=== PATIENT | female | born 1995 | race Two or more races ===

== ENCOUNTER 2018-03-17 13:26 | Emergency (ER) | payer SELFPAY ==
[~2018-03-17] VITALS: Ht 170.2 cm; Wt 102.5 kg
[2018-03-17] MEDS ORDERED: cefTRIAXone SOD 1,000 MG VL IM ONE (15:45)
[2018-03-17] MEDS ORDERED: ACETAMINOPHEN 325 MG TAB PO ONE (17:00)
[2018-03-17] MEDS ORDERED: PROMETHAZINE W/CODEINE 5 ML ORAL SYRUP PO ONE (19:15)
[2018-03-17 19:40] VITALS: BP 117/78
== END 2018-03-17 21:16 | disposition home or self-care (01) ==
LOC: ER 13:30
DX: O99.512 Diseases of the respiratory system complicating pregnancy, second trimester (principal); J40 Bronchitis, not specified as acute or chronic; O26.892 Other specified pregnancy related conditions, second trimester; R79.89 Other specified abnormal findings of blood chemistry; R00.0 Tachycardia, unspecified; Z3A.24 24 weeks gestation of pregnancy
CPT/HCPCS: 36415; 85379; 93005; 93970; 96372; 99284; J0696

== ENCOUNTER 2020-03-19 19:32 | Emergency (ER) | payer MEDICAID, OTHER ==
[~2020-03-19] VITALS: Ht 170.2 cm; Wt 104.3 kg
[2020-03-19 21:56] VITALS: BP 126/80
[2020-03-19] MEDS ORDERED: KETOROLAC TROMETH 60MG/2ML VIAL IM ONE (22:00)
[2020-03-19 23:05] LABS: Urine Bacteria NONE SEEN /hpf (None Seen); Urine Blood TRACE /uL (Negative); Urine Mucus FEW (None Seen); Urine WBC 6 /hpf (0 - 5)
== END 2020-03-19 22:45 | disposition home or self-care (01) ==
LOC: ER 19:32
DX: M54.16 Radiculopathy, lumbar region (principal); S39.012A Strain of muscle, fascia and tendon of lower back, initial encounter; X58.XXXA Exposure to other specified factors, initial encounter; Y93.89 Activity, other specified; Y92.89 Other specified places as the place of occurrence of the external cause; Y99.8 Other external cause status
CPT/HCPCS: 72131; 81001; 96372; 99284; J1885

== ENCOUNTER 2023-11-26 19:26 | Inpatient (IN) | payer SELFPAY ==
[~2023-11-26] VITALS: Ht 170.2 cm; Wt 107.7 kg
[~2023-11-26 19:26] MED LIST: HYDR-4902 PO; LEVO500T91 PO
[2023-11-26 20:24] LABS: Urine Bacteria None Seen /hpf (None Seen)
[2023-11-26 20:32] LABS: Basophils # (auto) 0 10 ^3/uL (0-0.2); Basophils % (auto) 0.4 % (0.0-2.0); Eosinophils # (auto) 0.1 10 ^3/uL (0-0.8); Eosinophils % (auto) 1.2 % (0.0-7.0); Hematocrit 33.4 % (36.0-46.0); Hemoglobin 11.4 g/dL (12.2-16.2); Lymphocytes # (auto) 2.4 10 ^3/uL (0.4-5.4); Lymphocytes % (auto) 30.4 % (10.0-50.0); Mean Corpuscular Hemoglobin 28.6 pg (28.0-32.0); Mean Corpuscular Hgb Conc. 34.2 g/dL (32.0-36.0); Mean Corpuscular Volume 83.6 fL (80.0-100.0); Monocytes # (auto) 0.6 10 ^3/uL (0-1.3); Monocytes % (auto) 7.6 % (0.0-12.0); Neutrophils # (auto) 4.7 10 ^3/uL (1.6-8.6); Neutrophils % (auto) 60.4 % (37.0-80.0); Platelet Count (auto) 351 10^3/uL (140-450); Red Blood Cells 3.99 10^6/uL (4.0-5.20); Red Cell Distribution Width 15.6 % (11.8-14.3); White Blood Cell 7.8 10^3/uL (4.4-10.8)
[2023-11-26 20:38] LABS: Urine Blood Negative /uL (Negative); Urine Budding Yeast OCCASIONAL /hpf (None Seen); Urine Clarity Clear (Clear); Urine Color Light-Yellow (Yellow); Urine Mucus FEW (None Seen); Urine Protein, UAD Negative (Negative); Urine Specific Gravity 1.027 (1.001-1.035); Urine Urobilinogen Normal (Negative); Urine WBC 2 /hpf (0 - 5); Urine pH 6.5 (5.0-9.0)
[2023-11-26 20:50] LABS: Alanine Aminotransferase 17 U/L (7-40); Alkaline Phosphatase 86 U/L (46-116); Calcium 9.9 mg/dL (8.7-10.4); Carbon Dioxide 27 mmol/L (20-30); Chloride 110 mmol/L (98-107)
[2023-11-26 20:51] LABS: Albumin 4.7 g/dL (3.2-4.8); Anion Gap 5 (5-15); Aspartate Aminotransferase < 8 U/L (13-40); BUN/Creatinine Ratio 15.2 (10.0-20.0); Bilirubin, Total 0.2 mg/dL (0.2-1.0); Blood Urea Nitrogen 12 mg/dL (9-23); Glucose 115 mg/dL (74-106); Lipase 42 U/L (12-53); Potassium 3.9 mmol/L (3.5-5.1); Sodium 142 mmol/L (136-145); Total Protein 7.5 g/dL (5.7-8.2)
[2023-11-26] MEDS: ONDANSETRON HCL 4 MG/2 ML VIAL IV ONE (21:00)
[2023-11-26] MEDS: PANTOPRAZOLE 40 MG/10 ML VIAL INJ IV ONE (21:00)
[2023-11-26] MEDS: SODIUM CHLORIDE 0.9% 1,000 ML IVB ONE (21:00)
[2023-11-26] MEDS: MORPHINE SULFATE 4 MG/ML SYR/VIAL IV ONE (21:00)
[2023-11-26] MEDS: SODIUM CHLORIDE 0.9% 1,000 ML IV SCH (23:00)
[2023-11-26 23:18] LABS: INR 0.95 (0.9-1.15); Partial Thromboplastin Time 25.7 SEC (24.5-34.5); Prothrombin Time 10.1 sec (9.3-11.8)
[2023-11-27] MEDS: ONDANSETRON HCL 4 MG/2 ML VIAL IV PRN (04:59)
[2023-11-27] MEDS: MORPHINE SULFATE INJ 2 MG/ml SYRG IV PRN (05:00)
[2023-11-27 06:23] LABS: Basophils # (auto) 0 10 ^3/uL (0-0.2); Basophils % (auto) 0.3 % (0.0-2.0); Eosinophils # (auto) 0 10 ^3/uL (0-0.8); Eosinophils % (auto) 0.1 % (0.0-7.0); Hematocrit 35.1 % (36.0-46.0); Hemoglobin 11.6 g/dL (12.2-16.2); Lymphocytes # (auto) 1.7 10 ^3/uL (0.4-5.4); Lymphocytes % (auto) 11.1 % (10.0-50.0); Mean Corpuscular Hemoglobin 27.9 pg (28.0-32.0); Mean Corpuscular Hgb Conc. 33.2 g/dL (32.0-36.0); Mean Corpuscular Volume 84.2 fL (80.0-100.0); Monocytes # (auto) 0.9 10 ^3/uL (0-1.3); Monocytes % (auto) 6.1 % (0.0-12.0); Neutrophils # (auto) 12.7 10 ^3/uL (1.6-8.6); Neutrophils % (auto) 82.4 % (37.0-80.0); Platelet Count (auto) 336 10^3/uL (140-450); Red Blood Cells 4.16 10^6/uL (4.0-5.20); Red Cell Distribution Width 15.6 % (11.8-14.3); White Blood Cell 15.5 10^3/uL (4.4-10.8)
[2023-11-27 06:35] LABS: Anion Gap 10 (5-15); Calcium 9.7 mg/dL (8.7-10.4); Carbon Dioxide 22 mmol/L (20-30); Chloride 107 mmol/L (98-107); Potassium 3.8 mmol/L (3.5-5.1); Sodium 139 mmol/L (136-145)
[2023-11-27 06:41] LABS: BUN/Creatinine Ratio 12.7 (10.0-20.0); Blood Urea Nitrogen 8 mg/dL (9-23); Glucose 115 mg/dL (74-106)
[2023-11-27 10:18] VITALS: BP 111/65; PULSE 6; RESP 17; TEMP 98.1; O2SAT 98
[2023-11-27 10:40] VITALS: BP 111/65; PULSE 67; RESP 17; TEMP 98.1; O2SAT 98
[2023-11-27] MEDS: PANTOPRAZOLE 40 MG/10 ML VIAL INJ IV SCH (10:54)
[2023-11-27 14:49] VITALS: BP 114/73; PULSE 67; RESP 17; TEMP 98.2; O2SAT 98
[2023-11-27 17:14] VITALS: BP 109/69; PULSE 76; RESP 17; TEMP 98.3; O2SAT 99
[2023-11-27 20:00] VITALS: PULSE 79; RESP 18; O2SAT 99
[2023-11-27 22:00] VITALS: BP 116/75; PULSE 83; RESP 18; TEMP 98.1; O2SAT 96
[2023-11-28] VITALS (8 sets, daily range): BP systolic 101–108; BP diastolic 59–69; PULSE 79–85; RESP 16–18; TEMP 98.1–99.9; O2SAT 95–99
[2023-11-28] MEDS: MORPHINE SULFATE 4 MG/ML SYR/VIAL IV PRN (13:41)
[2023-11-29] VITALS (8 sets, daily range): BP systolic 93–117; BP diastolic 50–62; PULSE 66–83; RESP 13–20; TEMP 97.5–98.7; O2SAT 95–100
[2023-11-29] MEDS ORDERED: ceFAZolin 2 GM/D5W100ml 100 ML IV ONE (10:42)
[2023-11-29] MEDS ORDERED: HYDROmorphone HCL 2 MG/ML VL/or syr IV PRN ×2 (11:00→12:30)
[2023-11-29] MEDS ORDERED: fentaNYL CITRATE 100 MCG/2 ML VL IV PRN (11:00)
[2023-11-29] MEDS ORDERED: MORPHINE SULFATE INJ 2 MG/ml SYRG IV PRN (11:00)
[2023-11-29] MEDS: KETOROLAC TROMETH 30 MG/ML 1ML VIAL IV ONE (11:00)
[2023-11-29] MEDS: METOCLOPRAMIDE HCL 5MG/ml INJ 2ml VIAL IV ONE (11:00)
[2023-11-29] MEDS ORDERED: LIDOCAINE W/ EPINEPHRINE 2% INJ 20ML VIAL ONE (11:02)
[2023-11-29] MEDS ORDERED: BUPIVACAINE HCL 0.25% P/F 10 ML VIAL ONE (11:02)
[2023-11-29] MEDS ORDERED: fentaNYL CITRATE 100 MCG/2 ML VL ONE (11:05)
[2023-11-29] MEDS ORDERED: MIDAZOLAM HCL 2MG/2ML 2ml VIAL (1mg/ml) ONE (11:05)
[2023-11-29] MEDS ORDERED: SODIUM CHLORIDE LOCK 10 ML ONE (11:06)
[2023-11-29] MEDS ORDERED: PROPOFOL 10 MG/ML 20 ML IV ONE (11:08)
[2023-11-29] MEDS ORDERED: KETAMINE 50mg/ML 1ml syringe ONE (11:08)
[2023-11-29] MEDS ORDERED: ROCURONIUM 10MG/ML 10ML VIAL IV ONE (11:08)
[2023-11-29] MEDS ORDERED: NEOSTIGMINE 1 MG/ML INJ (10mg/10ML VIAL) ONE (11:08)
[2023-11-29] MEDS ORDERED: LIDOCAINE 1% INJ PF 5ML AMP ONE (11:08)
[2023-11-29] MEDS ORDERED: ONDANSETRON HCL 4 MG/2 ML VIAL ONE (11:08)
[2023-11-29] MEDS ORDERED: GLYCOPYRROLATE 0.2 MG/ML 1ML VIAL ONE (11:08)
[2023-11-29] MEDS ORDERED: MEPERIDINE HCL (50 MG/ML) 1 ML VIAL ONE (11:08)
[2023-11-29] MEDS: HYDROmorphone HCL 2 MG/ML VL/or syr IV PRN (12:30)
[2023-11-29] MEDS: D5W/SOD CHL 0.45%/KCL 20MEQ 1,000 ML IV SCH (12:30)
[2023-11-30] VITALS (8 sets, daily range): BP systolic 97–121; BP diastolic 53–75; PULSE 74–92; RESP 17–20; TEMP 97.9–98.3; O2SAT 95–99
[2023-11-30 06:30] LABS: Basophils # (auto) 0 10 ^3/uL (0-0.2); Basophils % (auto) 0.2 % (0.0-2.0); Eosinophils # (auto) 0.1 10 ^3/uL (0-0.8); Eosinophils % (auto) 1.4 % (0.0-7.0); Hematocrit 29.4 % (36.0-46.0); Hemoglobin 9.9 g/dL (12.2-16.2); Lymphocytes # (auto) 1.5 10 ^3/uL (0.4-5.4); Lymphocytes % (auto) 16.9 % (10.0-50.0); Mean Corpuscular Hemoglobin 28.2 pg (28.0-32.0); Mean Corpuscular Hgb Conc. 33.7 g/dL (32.0-36.0); Mean Corpuscular Volume 83.7 fL (80.0-100.0); Monocytes # (auto) 0.9 10 ^3/uL (0-1.3); Monocytes % (auto) 9.7 % (0.0-12.0); Neutrophils # (auto) 6.5 10 ^3/uL (1.6-8.6); Neutrophils % (auto) 71.8 % (37.0-80.0); Platelet Count (auto) 299 10^3/uL (140-450); Red Blood Cells 3.51 10^6/uL (4.0-5.20); Red Cell Distribution Width 15.3 % (11.8-14.3); White Blood Cell 9.1 10^3/uL (4.4-10.8)
[2023-11-30] MEDS: cefTRIAXone 1GM/50ML D5W 50 ML IV SCH (09:43)
[2023-11-30] MEDS: ACETAMINOPHEN/CODEINE#3 (300/30mg) TAB PO PRN (21:17)
[2023-12-01 05:00] VITALS: BP 90/58; PULSE 71; RESP 18; TEMP 97.9; O2SAT 98
[2023-12-01 08:00] VITALS: PULSE 97; RESP 18; O2SAT 97
[2023-12-01 08:56] VITALS: BP 109/64; PULSE 74; RESP 18; TEMP 97.7; O2SAT 97
[2023-12-01] MEDS ORDERED: HYDR-4902 PO (11:57)
[2023-12-01] MEDS ORDERED: LEVO500T91 PO (11:57)
[2023-12-01 12:43] VITALS: BP 109/64; PULSE 74; RESP 18; TEMP 97.7; O2SAT 97
[2023-12-01 13:00] VITALS: BP 109/65; PULSE 81; RESP 18; TEMP 97.9; O2SAT 98
== END 2023-12-01 15:25 | disposition home or self-care (01) | DRG 419 ==
LOC: ER 19:26 → OVERFLOW 22:54 → WEST WING 11-27 10:00
PROVIDERS: ADMIT Nurse Practitioner; ATTEND Internal Medicine
PROC: 0FT44ZZ Resection of Gallbladder, Percutaneous Endoscopic Approach (ICD-10-PCS; principal; 2023-11-29 11:20)
DX: K80.00 Calculus of gallbladder with acute cholecystitis without obstruction (principal); K66.0 Peritoneal adhesions (postprocedural) (postinfection); E66.9 Obesity, unspecified; Z79.891 Long term (current) use of opiate analgesic; Z79.899 Other long term (current) drug therapy; Z68.37 Body mass index [BMI] 37.0-37.9, adult
CPT/HCPCS: 36415; 71045; 76705; 78226; 80048; 80053; 81001; 82247; 83690; 84702; 85025; 85610; 85730; 86850; 86900; 86901; 87070; 87075; 87205; G0378; J2250; J2405; J2470; J2704; J3490